=== PATIENT | female | born 1985 | race Caucasian/White ===

== ENCOUNTER 2016-11-07 07:15 | Emergency (ER) | payer BC ==
--- NOTE | 2016-11-07 07:32 | UC ---
Dental HPI - HPI Summary HPI Summary: Left facial swelling since yesterday. she has had dental problems on that side but does not have a dentist currently. she denies fevers or chills or dm. - History of Current Complaint Stated Complaint: SWOLLEN FACE,DENTAL PAIN Time Seen by Provider: 11/07/16 07:22 Hx Obtained From: Patient Onset/Duration: Gradual Onset Severity: Severe Aggravating: Heat, Cold, Chewing Alleviating: Nothing Related History: Swelling - Allergies/Home Medications Allergies/Adverse Reactions: Allergies Allergy/AdvReac Type Severity Reaction Status Date / Time No Known Allergies Allergy Verified 11/07/16 07:28 Home Medications: Home Medications Escitalopram Oxalate [Lexapro 10 mg] 10 mg PO DAILY 11/07/16 [History Confirmed 11/07/16] Ibuprofen [Advil] 600 mg PO ONCE PRN 11/07/16 [History Confirmed 11/07/16] PMH/Surg Hx/FS Hx/Imm Hx Previously Healthy: Yes - Family History Known Family History: Positive: Other - no related dental issues. - Social History Occupation: Employed Full-time Substance Use Type: None Review of Systems ENT: Dental Pain All Other Systems Reviewed And Are Negative: Yes Physical Exam Triage Information Reviewed: Yes Appearance: Well-Appearing - non toxic., Well-Nourished Vital Signs Reviewed: Yes Eye Exam: Normal ENT: Negative: Tonsillar swelling, Tonsillar exudate, Trismus, Muffled/hoarse voice Dental: Positive: Percussion Tenderness @, Gross Decay/Caries @, Abscess @ - Left mid molar several deep carries in the surrounding teeth. lateral to that is a lopez mendoza sized fluctuant mass that is tender with surrounding swelling of the lower left cheeck.. Negative: Cervical Lymphadenopathy Neck exam: Normal Neck: Positive: Supple, Nontender, No Lymphadenopathy Respiratory Exam: Normal Cardiovascular Exam: Normal Abdominal Exam: Normal Musculoskeletal Exam: Normal Neurological Exam: Normal Psychological Exam: Normal Skin Exam: Normal Procedures - Incision and Drainage Site: left lower jaw dental abcess. sterile technique. lidocaine with epi. 11 negrito Anesthesia: Local, Lidocaine, Other - purulent drainage noted. no complications. Instrument(s): Scalpel Dental Complaint Course/Dx - Differential Dx/Diagnosis Differential Diagnosis/Dx: Dental Abscess, Dental Caries, Fractured Tooth, Gingivitis, Shane's Angina, Mandibular Trauma, Maxillary Trauma, Odontogenic Pain, Peridontic Disease, Peritonsillar Abcess, Pharyngitis, Post Extraction Pain, TMJ Syndrome, Tonsillitis Provider Diagnoses: Left lower dental abcess. Left lower dental decay and carries. Incision and drainage. Discharge - Discharge Plan Condition: Good Disposition: HOME Prescriptions: Amoxicillin/Clavulanate TAB* [Augmentin TAB 875*] 875 mg PO BID #20 tab Patient Education Materials: Dental Abscess (ED) Referrals: Modesta Rasheed PA [Primary Care Provider] - Additional Instructions: return here in 1-2 days for re eval. go to the ED if this worsens in any way.
[2016-11-07 07:45] VITALS: BP 130/79
[2016-11-07] MEDS ORDERED: Lidocaine 1.5% EPI 1:200,000* 30 ML SDV INJ ONE (07:58)
[2016-11-07] MEDS ORDERED: Lidocaine 2% W/EPI 1:100,000* 20 ML MDV INJ ONE (08:02)
[2016-11-07] MEDS ORDERED: Lidocaine 2% W/EPI 1:100,000* 20 ML MDV ONE (08:05)
[2016-11-07] MEDS ORDERED: Amoxicillin/Clavulanate TAB* 875 MG PO ONE (08:23)
--- NOTE | 2016-11-08 09:33 | ED ---
Progress - Progress Note Progress Note: call patient, (-) HEP B/C/HIV 1&2. Course/Dx - Diagnoses Provider Diagnoses: Dental abscess
== END 2016-11-07 08:44 | disposition home or self-care (01) ==
LOC: UCCORT 07:15
DX: K04.7 Periapical abscess without sinus (principal); K02.9 Dental caries, unspecified; Z11.4 Encounter for screening for human immunodeficiency virus [HIV]
CPT/HCPCS: 36415; 41800; 86703; 86803; 87340; 99202; A9270-GY; G0463